=== PATIENT | female | born 1975 | race Caucasian/White ===

== ENCOUNTER 2019-07-24 14:14 | Emergency (ER) | payer BC, OTHER ==
[~2019-07-24] VITALS: Ht 170.2 cm; Wt 88.0 kg
[2019-07-24] MEDS ORDERED: ONDANSETRON HCL 4MG/2ML INJ IV ONE (15:00)
[2019-07-24 17:06] VITALS: BP 117/54
== END 2019-07-24 17:13 | disposition home or self-care (01) ==
LOC: ER 14:14
DX: F41.1 Generalized anxiety disorder (principal); M79.7 Fibromyalgia; M32.9 Systemic lupus erythematosus, unspecified
CPT/HCPCS: 82962; 93005; 99283